=== PATIENT | female | born 1960 | race Caucasian/White ===

== ENCOUNTER 2020-10-24 08:47 | Observation (INO) | payer BC ==
[2020-10-24 09:25] LABS: #Eosinphils 0.1 thou/uL (0.0-0.7); #Lymphocytes 1.4 thou/uL (1.20-3.40); #Monocytes 0.6 thou/uL (0.11-0.59); #Neutrophils 4.3 thou/uL (1.40-6.50); %Basophils 0.5 % (0.0-1.0); %Eosinophils 2.2 % (0.0-10.0); %Lymphocytes 22.3 % (21.0-51.0); %Monocytes 8.7 % (0.0-10.0); %Neutrophils 66.3 % (42.0-75.0); Hemoglobin 12.6 g/dL (12.0-16.0); Mean Corpuscular HGB CONC 36.4 g/dL (32.0-36.0); Mean Corpuscular Hemoglobin 33.9 pg (27.0-31.0); Mean Corpuscular Volume 93.1 fL (78.0-98.0); Mean Platelet Volume 7.3 fL (7.4-10.4); Platelet Count 241 thou/uL (130-400); RBC Distribution Width 10.9 % (11.5-14.5); Red Blood Cell (RBC) Count 3.71 mill/uL (4.20-5.40); White Blood Cell (WBC) Count 6.5 thou/uL (4.8-10.8)
[2020-10-24 09:48] LABS: PTT 26.2 sec (22.9-36.1); Prothrombin Time 13.2 sec (12.0-14.7)
[2020-10-24 09:53] LABS: ALT (SGPT) 20 U/L (8-55); AST (SGOT) 14 U/L (5-34); Albumin 3.5 g/dL (3.5-5.0); Alkaline Phosphatase 70 U/L (40-110); Anion Gap 13 mmol/L (10-20); BUN (Urea Nitrogen) 13 mg/dL (9.8-20.1); Bilirubin, Total 0.5 mg/dL (0.2-1.2); Calc. Creatinine Clearance 0 mL/min (70-130); Calcium 8.8 mg/dL (7.8-10.44); Carbon Dioxide 21 mmol/L (22-29); Chloride 109 mmol/L (98-107); Globulin 2.2 g/dL (2.4-3.5); Glucose 240 mg/dL (70-105); Potassium 3.8 mmol/L (3.5-5.1); Protein, Total 5.7 g/dL (6.0-8.3); Sodium 139 mmol/L (136-145)
[2020-10-24] MEDS ORDERED: Iopamidol-370 76% 500 ML 1 ML ONE (11:42)
[2020-10-24 11:47] LABS: SARS-CoV-2 NAA Rapid Test Not Detected (NotDetected)
[2020-10-24] MEDS ORDERED: Fentanyl 100 MCG/2 ML VIAL ONE ×3 (13:11→17:13)
[2020-10-24] MEDS ORDERED: Propofol 500 MG/50 ML VIAL ONE (13:11)
[2020-10-24] MEDS ORDERED: Ondansetron PF 4 MG/2 ML Vial ONE (13:29)
[2020-10-24] MEDS ORDERED: Dexamethasone 20 MG/5 ML VIAL ONE (13:29)
[2020-10-24] MEDS ORDERED: Rocuronium Bromide 10 MG/ML (10ML VIAL) ONE (13:29)
[2020-10-24] MEDS ORDERED: Succinylcholine 200 MG/10 ml SYRINGE FS ONE (13:29)
[2020-10-24] MEDS ORDERED: PHENYLEPHRINE-NS 100 MCG/ML 10 ML SYRINGE ONE ×2 (13:29→15:13)
[2020-10-24] MEDS ORDERED: PROPOFOL 200 MG/20 ML VIAL ONE (13:29)
[2020-10-24] MEDS ORDERED: ePHEDrine 50 MG/ML VIAL ONE (13:29)
[2020-10-24] MEDS ORDERED: Glycopyrrolate 0.2 MG/ML 5 ML SYRINGE ONE (13:29)
[2020-10-24 18:31] VITALS: BMI 31.9
[2020-10-24] MEDS ORDERED: Morphine 2 MG/ML VIAL SLOW IVP PRN (22:31)
[2020-10-24] MEDS ORDERED: Acetaminophen 500 MG TAB PO PRN (22:31)
[2020-10-25 03:19] LABS: #Lymphocytes 0.6 thou/uL (1.20-3.40); #Monocytes 0.1 thou/uL (0.11-0.59); #Neutrophils 7.4 thou/uL (1.40-6.50); %Basophils 0.2 % (0.0-1.0); %Eosinophils 0.1 % (0.0-10.0); %Monocytes 1.4 % (0.0-10.0); %Neutrophils 91.3 % (42.0-75.0); Hemoglobin 11.7 g/dL (12.0-16.0); Mean Corpuscular Hemoglobin 32.9 pg (27.0-31.0); Mean Corpuscular Volume 91.3 fL (78.0-98.0); Mean Platelet Volume 7.2 fL (7.4-10.4); Platelet Count 160 thou/uL (130-400); RBC Distribution Width 12.7 % (11.5-14.5); Red Blood Cell (RBC) Count 3.57 mill/uL (4.20-5.40); White Blood Cell (WBC) Count 8.1 thou/uL (4.8-10.8)
[2020-10-25] MEDS ORDERED: FLU VACC QS2020-21(6MOS UP)/PF 60 MCG/0.5 ML SYRINGE IM ONE (09:00)
[2020-10-25 12:00] VITALS: BP 103/63; TEMP 98.1
== END 2020-10-25 13:53 | disposition home or self-care (01) ==
LOC: ERS 08:47 → SJJU 15:50
PROVIDERS: ADMIT Internal Medicine Gastroenterology; ATTEND Internal Medicine Gastroenterology
PROC: 0DBN8ZX Excision of Sigmoid Colon, Via Natural or Artificial Opening Endoscopic, Diagnostic (ICD-10-PCS; principal; 2020-10-24)
PROC: 0W3P8ZZ Control Bleeding in Gastrointestinal Tract, Via Natural or Artificial Opening Endoscopic (ICD-10-PCS; 2020-10-24)
DX: D12.5 Benign neoplasm of sigmoid colon (principal); K91.840 Postprocedural hemorrhage of a digestive system organ or structure following a digestive system procedure; I95.9 Hypotension, unspecified; I10 Essential (primary) hypertension; E78.5 Hyperlipidemia, unspecified; I25.10 Atherosclerotic heart disease of native coronary artery without angina pectoris; I25.2 Old myocardial infarction; J45.909 Unspecified asthma, uncomplicated; D64.9 Anemia, unspecified; E11.9 Type 2 diabetes mellitus without complications; E78.00 Pure hypercholesterolemia, unspecified; E66.9 Obesity, unspecified; Z68.32 Body mass index [BMI] 32.0-32.9, adult; Z80.0 Family history of malignant neoplasm of digestive organs; Z79.02 Long term (current) use of antithrombotics/antiplatelets; Z79.82 Long term (current) use of aspirin; Z79.899 Other long term (current) drug therapy; Z88.1 Allergy status to other antibiotic agents; Z95.5 Presence of coronary angioplasty implant and graft; Z20.822 Contact with and (suspected) exposure to COVID-19
CPT/HCPCS: 0240U; 36415; 36430; 74177; 80053; 82274; 85025; 85610; 85730; 86850; 86900; 86901; 88305; 90471; 90662; 94760; G0008; G0378; J1100; J2405; J2704; J3010; J3490; P9016; Q9967

== ENCOUNTER 2020-11-13 12:42 | Outpatient (CLI) | payer BC ==
[2020-11-13 14:27] LABS: #Eosinphils 0.2 10x3/uL (0.0-0.5); #Monocytes 0.5 10x3/uL (0.0-1.1); #Neutrophils 1.8 10x3/uL (1.5-8.4); %Basophils 0.8 % (0.0-2.0); %Eosinophils 4.3 % (0.0-6.0); %Lymphocytes 33.2 % (18.0-47.0); %Monocytes 12.5 % (0.0-10.0); %Neutrophils 48.9 % (40.0-75.0); Hemoglobin 14.4 g/dL (12.0-15.5); Mean Corpuscular HGB CONC 36.2 g/dL (32.0-36.0); Mean Corpuscular Hemoglobin 32.4 pg (27.0-33.0); Mean Corpuscular Volume 89.6 fl (81.6-98.3); Mean Platelet Volume 9.9 fl (7.4-10.4); Platelet Count 200 10x3/uL (150-450); RBC Distribution Width 13.1 % (11.5-14.5); Red Blood Cell (RBC) Count 4.44 10x6/uL (3.90-5.03); White Blood Cell (WBC) Count 3.8 10x3/uL (3.5-10.5)
[2020-11-13 14:36] LABS: Anion Gap 12 mmol/L (10-20); BUN (Urea Nitrogen) 8 mg/dL (9.8-20.1); Calc. Creatinine Clearance 0 mL/min (70-130); Carbon Dioxide 24 mmol/L (22-29); Chloride 107 mmol/L (98-107); Glucose 151 mg/dL (70-105); Potassium 4.1 mmol/L (3.5-5.1); Sodium 139 mmol/L (136-145)
[2020-11-13 21:15] LABS: Hemoglobin A1c 6.5 % (4.0-6.0)
[2020-11-14 05:52] LABS: SARS-CoV-2 PCR by NAA Not Detected (NotDetected)
== END 2020-11-13 12:43 | disposition home or self-care (01) ==
LOC: LABBT 12:42
PROVIDERS: ATTEND Surgery
DX: Z01.818 Encounter for other preprocedural examination (principal); C18.9 Malignant neoplasm of colon, unspecified; Z20.822 Contact with and (suspected) exposure to COVID-19
CPT/HCPCS: 80048; 83036; 85025; 87635; 93005; 93010; U0003; U0005

== ENCOUNTER 2020-11-16 10:05 | Inpatient (IN) | payer BC ==
[2020-11-15 13:52] VITALS: BMI 31.4
[2020-11-16] MEDS ORDERED: cefOXitin Sodium/Dextrose 2 GM/50 ML BAG ONE (10:56)
[2020-11-16] MEDS ORDERED: Dexamethasone 4 mg/ml Vial ONE (11:33)
[2020-11-16] MEDS ORDERED: Fentanyl 100 MCG/2 ML VIAL ONE ×4 (11:33→16:01)
[2020-11-16] MEDS ORDERED: Midazolam HCl 2 mg/2 ml Vial ONE ×2 (11:33→12:38)
[2020-11-16] MEDS ORDERED: PROPOFOL 200 MG/20 ML VIAL ONE (13:07)
[2020-11-16] MEDS ORDERED: Dexamethasone 20 MG/5 ML VIAL ONE ×2 (13:07)
[2020-11-16] MEDS ORDERED: Glycopyrrolate 0.2 MG/ML 5 ML SYRINGE ONE (13:07)
[2020-11-16] MEDS ORDERED: Bupivacaine HCl 0.5%/Epinephrine 1:200,000/PF 30 ml Vial ONE (13:07)
[2020-11-16] MEDS ORDERED: Lidocaine 1% PF 5 ML VIAL ONE (13:07)
[2020-11-16] MEDS ORDERED: Ondansetron PF 4 MG/2 ML Vial ONE (13:07)
[2020-11-16] MEDS ORDERED: Rocuronium Bromide 10 MG/ML (10ML VIAL) ONE (13:07)
[2020-11-16] MEDS ORDERED: SUGAMMADEX SODIUM 200 MG/2 ML VIAL ONE (15:14)
[2020-11-16] MEDS ORDERED: diphenhydrAMINE 50 MG/ML VIAL IM PRN (15:59)
[2020-11-16] MEDS ORDERED: Naloxone HCl 0.4 mg/ml Vial IV PRN (15:59)
[2020-11-16] MEDS ORDERED: diphenhydrAMINE 50 MG/ML VIAL IVP PRN (15:59)
[2020-11-16] MEDS ORDERED: Ondansetron PF 4 MG/2 ML Vial IVP PRN (15:59)
[2020-11-16] MEDS ORDERED: fentaNYL Citrate/PF 2,000 MCG in Sodium Chloride 0.9% 60 ML IV PRN (15:59)
[2020-11-16] MEDS ORDERED: diphenhydrAMINE 25 MG CAP PO PRN (15:59)
[2020-11-16] MEDS ORDERED: Promethazine HCl 25 MG/ML VIAL IM PRN ×2 (15:59→18:46)
[2020-11-16] MEDS ORDERED: Zolpidem Tartrate 5 MG TAB PO PRN (15:59)
[2020-11-16] MEDS ORDERED: Communication Order-Pharmacy FS SCH (16:00)
[2020-11-16] MEDS ORDERED: HYDROmorphone 0.5 MG/0.5 ML SYRINGE ONE ×3 (16:01→17:47)
[2020-11-16] MEDS ORDERED: hydrALAZINE 20 MG/ML VIAL SLOW IVP PRN (18:46)
[2020-11-16] MEDS ORDERED: Albuterol Sulfate 2.5 mg/3 ml Neb NEB PRN (19:14)
[2020-11-16] MEDS: cefOXitin Sodium/Dextrose,Iso 2 GM in Premix Bag 1 BAG IVPB SCH (19:49)
[2020-11-16] MEDS: Famotidine/PF 20 mg/2ml Vial SLOW IVP SCH (19:49)
[2020-11-16] MEDS: D5 1/2 NS w/20 mEq KCL 1,000 ML IV SCH (19:53)
[2020-11-16] MEDS: Famotidine 20 MG TAB PO SCH (20:00)
[2020-11-17] MEDS: cefOXitin Sodium/Dextrose,Iso 2 GM in Premix Bag 1 BAG IVPB SCH (03:17)
[2020-11-17 05:53] LABS: #Lymphocytes 0.4 thou/uL (1.20-3.40); #Monocytes 0.4 thou/uL (0.11-0.59); #Neutrophils 7.1 thou/uL (1.40-6.50); %Eosinophils 0.1 % (0.0-10.0); %Lymphocytes 5.1 % (21.0-51.0); %Monocytes 4.8 % (0.0-10.0); Hemoglobin 12.8 g/dL (12.0-16.0); Mean Corpuscular HGB CONC 34.9 g/dL (32.0-36.0); Mean Corpuscular Hemoglobin 32.8 pg (27.0-31.0); Mean Corpuscular Volume 93.8 fL (78.0-98.0); Mean Platelet Volume 7.2 fL (7.4-10.4); Platelet Count 178 thou/uL (130-400); RBC Distribution Width 12.6 % (11.5-14.5); White Blood Cell (WBC) Count 7.8 thou/uL (4.8-10.8)
[2020-11-17 06:04] LABS: Anion Gap 11 mmol/L (10-20); BUN (Urea Nitrogen) 9 mg/dL (9.8-20.1); Calc. Creatinine Clearance 114 mL/min (70-130); Calcium 7.9 mg/dL (7.8-10.44); Carbon Dioxide 26 mmol/L (22-29); Chloride 104 mmol/L (98-107); Glucose 227 mg/dL (70-105); Potassium 4.4 mmol/L (3.5-5.1); Sodium 137 mmol/L (136-145)
[2020-11-17] MEDS: Famotidine/PF 20 mg/2ml Vial SLOW IVP SCH ×2 (07:41→22:01)
[2020-11-17] MEDS: Famotidine 20 MG TAB PO SCH ×2 (09:32→21:30)
[2020-11-17] MEDS: D5 1/2 NS w/20 mEq KCL 1,000 ML IV SCH ×3 (09:33→22:04)
[2020-11-17] MEDS: Enoxaparin Sodium 40 MG/0.4 ML SYRINGE SC SCH (10:07)
[2020-11-17] MEDS: Metoprolol Tartrate 25 MG TAB PO SCH (10:12)
[2020-11-17] MEDS: Ondansetron PF 4 MG/2 ML Vial IVP PRN (11:39)
[2020-11-18] MEDS ORDERED: Fentanyl 100 MCG/2 ML VIAL SLOW IVP PRN ×2 (08:54)
[2020-11-18] MEDS: Famotidine/PF 20 mg/2ml Vial SLOW IVP SCH ×2 (10:02→19:45)
[2020-11-18] MEDS: Enoxaparin Sodium 40 MG/0.4 ML SYRINGE SC SCH (10:45)
[2020-11-18] MEDS: Famotidine 20 MG TAB PO SCH ×2 (10:45→20:43)
[2020-11-18] MEDS: Metoprolol Tartrate 25 MG TAB PO SCH (10:46)
[2020-11-18] MEDS: D5 1/2 NS w/20 mEq KCL 1,000 ML IV SCH (10:53)
[2020-11-18] MEDS: HYDROcodone/Acetaminophen 7.5/325 mg Tablet PO PRN (16:08)
[2020-11-19] MEDS: HYDROcodone/Acetaminophen 7.5/325 mg Tablet PO PRN ×4 (03:31→22:20)
[2020-11-19 05:27] LABS: #Eosinphils 0.1 thou/uL (0.0-0.7); #Lymphocytes 1.4 thou/uL (1.20-3.40); #Monocytes 0.5 thou/uL (0.11-0.59); #Neutrophils 2.9 thou/uL (1.40-6.50); %Basophils 0.2 % (0.0-1.0); %Eosinophils 1.9 % (0.0-10.0); %Lymphocytes 28.4 % (21.0-51.0); %Monocytes 10.9 % (0.0-10.0); %Neutrophils 58.6 % (42.0-75.0); Hemoglobin 11.1 g/dL (12.0-16.0); Mean Corpuscular HGB CONC 34.9 g/dL (32.0-36.0); Mean Corpuscular Hemoglobin 32.9 pg (27.0-31.0); Mean Corpuscular Volume 94.3 fL (78.0-98.0); Mean Platelet Volume 6.8 fL (7.4-10.4); Platelet Count 137 thou/uL (130-400); RBC Distribution Width 12.5 % (11.5-14.5); Red Blood Cell (RBC) Count 3.38 mill/uL (4.20-5.40)
[2020-11-19 05:53] LABS: Anion Gap 10 mmol/L (10-20); BUN (Urea Nitrogen) 4 mg/dL (9.8-20.1); Calc. Creatinine Clearance 148 mL/min (70-130); Calcium 7.9 mg/dL (7.8-10.44); Carbon Dioxide 24 mmol/L (22-29); Chloride 106 mmol/L (98-107); Glucose 143 mg/dL (70-105); Potassium 3.2 mmol/L (3.5-5.1); Sodium 137 mmol/L (136-145)
[2020-11-19] MEDS ORDERED: D5 1/2 NS w/20 mEq KCL 1,000 ML IV SCH (09:18)
[2020-11-19] MEDS ORDERED: Potassium Chloride 40 MEQ in Sodium Chloride 0.9% 250 ML 250 ML IVPB SCH (09:30)
[2020-11-19] MEDS: Metoprolol Tartrate 25 MG TAB PO SCH (09:48)
[2020-11-19] MEDS: Famotidine 20 MG TAB PO SCH ×2 (09:48→22:15)
[2020-11-19] MEDS: Famotidine/PF 20 mg/2ml Vial SLOW IVP SCH ×2 (09:50→20:14)
[2020-11-19] MEDS: Enoxaparin Sodium 40 MG/0.4 ML SYRINGE SC SCH (10:44)
[2020-11-20] MEDS: Ondansetron PF 4 MG/2 ML Vial IVP PRN (00:14)
[2020-11-20] MEDS: HYDROcodone/Acetaminophen 7.5/325 mg Tablet PO PRN ×2 (10:05→18:41)
[2020-11-20] MEDS: Famotidine 20 MG TAB PO SCH ×2 (10:06→21:38)
[2020-11-20] MEDS: Metoprolol Tartrate 25 MG TAB PO SCH (10:06)
[2020-11-20] MEDS: Famotidine/PF 20 mg/2ml Vial SLOW IVP SCH ×2 (10:07→21:48)
[2020-11-20] MEDS: Enoxaparin Sodium 40 MG/0.4 ML SYRINGE SC SCH (12:17)
[2020-11-20] MEDS ORDERED: Atorvastatin Calcium 40 MG TAB PO SCH (21:00)
[2020-11-20] MEDS: Simethicone Chewable 80 MG TAB PO PRN (22:07)
[2020-11-21] MEDS: HYDROcodone/Acetaminophen 7.5/325 mg Tablet PO PRN ×2 (00:35→11:19)
[2020-11-21] MEDS: Simethicone Chewable 80 MG TAB PO PRN ×2 (05:00→11:19)
[2020-11-21] MEDS: Metoprolol Tartrate 25 MG TAB PO SCH (08:12)
[2020-11-21] MEDS: Famotidine 20 MG TAB PO SCH (08:12)
[2020-11-21] MEDS: Famotidine/PF 20 mg/2ml Vial SLOW IVP SCH (08:13)
[2020-11-21 08:47] VITALS: BP 110/72; TEMP 98.5
[2020-11-21] MEDS ORDERED: medroxyPROGESTERone Acetate 2.5 MG TAB PO SCH (09:00)
[2020-11-21] MEDS ORDERED: Estradiol 1 MG TAB PO SCH (09:00)
[2020-11-21] MEDS ORDERED: DULoxetine 60 MG CAP PO SCH (09:00)
[2020-11-21] MEDS: Enoxaparin Sodium 40 MG/0.4 ML SYRINGE SC SCH (10:00)
== END 2020-11-21 11:43 | disposition home or self-care (01) | DRG 330 ==
LOC: SDC 10:05 → SJJU 15:19 → SDC 18:46
PROVIDERS: ADMIT Surgery; ATTEND Surgery
PROC: 0DTF4ZZ Resection of Right Large Intestine, Percutaneous Endoscopic Approach (ICD-10-PCS; principal; 2020-11-16)
DX: C18.4 Malignant neoplasm of transverse colon (principal); K56.7 Ileus, unspecified; F41.9 Anxiety disorder, unspecified; J45.909 Unspecified asthma, uncomplicated; Z20.822 Contact with and (suspected) exposure to COVID-19; Z79.82 Long term (current) use of aspirin
CPT/HCPCS: 36415; 80048; 85025; 88309; J0694; J1100; J1170; J1650; J2250; J2405; J2704; J3010; J3480; J3490; J7050; S0028

== ENCOUNTER 2020-12-12 14:44 | Outpatient (CLI) | payer BC ==
[~2020-12-12 14:44] MED LIST: Iopamidol-370 76% 500 ML 1 ML ONE
== END 2020-12-12 14:45 | disposition home or self-care (01) ==
LOC: BICCT 14:44
PROVIDERS: ATTEND Internal Medicine Hematology & Oncology
DX: C18.9 Malignant neoplasm of colon, unspecified (principal); R10.9 Unspecified abdominal pain
CPT/HCPCS: 71260; 74019; Q9967

== ENCOUNTER 2021-06-20 09:59 | Outpatient (CLI) | payer BC ==
[2021-06-20] MEDS ORDERED: Iopamidol 370 76% 100 ML VIAL ONE (10:05)
== END 2021-06-20 10:00 | disposition home or self-care (01) ==
LOC: CT 09:59
PROVIDERS: ATTEND Pediatrics
DX: R10.33 Periumbilical pain (principal); K59.00 Constipation, unspecified; K57.30 Diverticulosis of large intestine without perforation or abscess without bleeding; K76.0 Fatty (change of) liver, not elsewhere classified; D73.89 Other diseases of spleen; Z90.49 Acquired absence of other specified parts of digestive tract
CPT/HCPCS: 74178